=== PATIENT | male | born 1950 | race Caucasian/White ===

== ENCOUNTER → 2017-07-14 | Day surgery (SDC) | payer MEDICARE ==
[~2017-07-14] VITALS: Ht 188 cm; Wt 81.0 kg
[2017-07-14] VITALS (10 sets, daily range): BP systolic 123–151; BP diastolic 75–92; PULSE 68–91; RESP 14–17; O2SAT 93–99
[~2017-07-14] MED LIST: Bupivacaine-MPF 0.5% 30 mL Inj INFILTRATE ONE; CeFAZolin 2 Gm/50 mL D5W IV Premix IV ONE; Dexamethasone 4 mg/mL Inj ONE; EPHEDrine Sulfate 50 mg/mL Inj IVPUSH PRN; EPHEDrine/NS 5 mg/mL 5 mL Syringe ONE; Glycopyrrolate 0.2 MG/ML 1mL Inj ONE; HYDROmorphone 1 mg/mL Inj IVPUSH PRN; Lactated Ringer's 1,000 ML IV ONE; Lactated Ringer's 1,000 ML IV SCH; Lactated Ringer's 500 ML IV PRN; MetoCLOpramide 5 mg/mL 2 mL Inj IVPUSH PRN; OXYC1TAB24 PO; Ondansetron 2 mg/mL 2 mL Inj IVPUSH PRN; Ondansetron 2 mg/mL 2 mL Inj ONE; POLY17PO6 PO; Phenylephrine 10,000 mCg/mL Inj IVPUSH PRN; Propofol 10,000 mCg/mL 20 mL Inj ONE; fentaNYL-PF 50 mCg/mL 2 mL Inj IVPUSH PRN; fentaNYL-PF 50 mCg/mL 2 mL Inj ONE
--- NOTE | 2017-07-14 11:23 | PCM.HPANE ---
Patient Data Surgeon Admitting Provider: Attending Provider:Annette Morocho MD Primary Care Physician:Anjel Mar MD Other Provider:[place] Anesthesia Reason for Visit Recurrent Right Inguinal Hernia Ht/WT & BMI Height (Feet): 6 Height (Inches): 2.00 Weight (Kilograms): 81.000 Body Mass Index 22.00 Allergies Coded Allergies: No Known Allergies (Verified Allergy, Unknown, 07/06/17) Past Anesthesia History Anesthesia History: Denies:: Abnormal Airway, Anesthesia Reactions, Difficult Intubation, Malignant Hyperthermia Diabetes History Hx Diabetes?: No MRSA MRSA: No Medications Blood Thinner: Aspirin Home Meds Incl Beta Mars: No Active Scripts Polyethylene Glycol 3350 (Miralax)17 Gm Powd.pack17 Gm PO DAILY #1 BOTTLE Prov:Lisandra Swan MD 07/14/17 oxyCODONE-Acetaminophen 5-325 mg 1 Each Tablet1 Tab PO Q4H PRN For Pain #12 TABLET Prov:Lisandra Swan MD 07/14/17 History History of ENT Problems?: No HEENT History: Denies:: Abnormal Airway Cataracts Difficult Intubation Dysphagia Glaucoma Hearing Problem Sinus Problem TMJ Denture Type: None Teeth Condition: Within Normal Limits Hx of Heart Problems?: Yes Cardiovascular History: Positive for:: Chest Pain (remote hx of 2008) Valvular Heart Disease (echo 2008, hx mitral valve prolapse ) Denies:: Cardiac Surgery Congestive Heart Failure Edema Heart Murmur Hypertension Irregular Heartbeat Pacemaker Thrombophlebitis Other Cardiac History: Redd - sees for chronic ideopathic thrombocytopenia , last known platelet count 89 03/2017 Hx of Respiratory Problem?: No Respiratory History: Denies:: Asthma COPD Chest Surgery Cough Dyspnea Emphysema Hemoptysis Oxygen Administration Pneumonia Pulmonary Embolism Tuberculosis Use of C-PAP Machine Use of Inhalers / NEBS Hx Neurologic Problems?: No Neurological History: Denies:: Alzheimer's Disease CVA Dementia Dizziness Headaches Multiple Sclerosis Parkinson's Disease Peripheral Neuropathy Seizures TIA Hx of GI Problems?: Yes Other GI Pertinent History: recurrent right inguinal hernia current admission problem, hx of prior bilateral hernia repairs Hx of Problems?: Yes Genitourinary History: Positive for:: Kidney Stones (hx of 2015 with surgery) Denies:: HX of Hemodialysis Urinary Tract Infection (past hx of not current) HX of Peritoneal Dialysis: No Male Hx: Positive for:: Prostate Problems (bph) Denies:: Scrotal Mass Testicular Surgery (hx of vasectomy) Skin History: Denies:: History Skin Disorders? Pressure Ulcers Hx Musculoskeletal Problems?: No Musculoskeletal History: Denies:: Back Injury Fibromyalgia Joint Replacement Musculoskeletal Trauma Osteoarthritis Hx of Psycho/Social Problems?: No Psycho Social History: Denies:: Anxiety Hx Depression Hx Surgeries?: Yes (hx inguinal hernia repair, spermatocele, rt ureteral stent) Hx Any Other Health Problems?: Yes Other History: Positive for:: Hospitalization Denies:: Cancer Endocrine Disease Thyroid Disease History Blood Transfusions: Positive for:: Accept Blood Products? Denies:: Blood Transfusions Hx Diabetes: No Other History/Comment Idiopathic thrombocytopenia, chronic, stable, no changes in recent months, never warranted transfusion or treatment Hx Alcohol Use: NoHx Substance Use: No Smoking Status: Former Smoker Have You Smoked inLast 12 mo: No Stop/Bang S-Snoring: Do You Snore Loudly: No T-Tired: feel tired, fatigued: Yes O-Obsered: Observed not breath: No P-Blood Pressure: treated: No B- Body Mass Index > 35 kg/m2: No A- Age over 50: Yes N- Neck Large Circumference: No G- Gender Male: Yes SHARONDA Total Score: 3 SHARONDA Risk Assessment: High Risk, =/>3 Yes SHARONDA Category 4 OutPt Procedure: Yes Risk Assessment Category Category 1A: Patient has history of documented sleep apnea, and HAS NOT received any narcotic, sedative or anesthesia administration during this stay. Category 1B: Patient has history of documented sleep apnea, and HAS received any narcotic , sedative or anesthesia administration during this stay Category 2: Patient has SUSPECTED Obstructive Sleep Apnea, and HAS received any narcotic , sedative or anesthesia administration during this stay. Category 3: Patient has SUSPECTED Obstructive Sleep Apnea and HAS NOT received narcotic, sedative or anesthesia administration during this stay. Category 4: Outpatient in Procedural Areas with known sleep apnea or who screen positive for High Risk via the STOP/BANG questionnaire. Exam Exam Vital Signs Vital Signs Date Time Temp Pulse Resp B/P Pulse Ox O2 Delivery O2 Flow Rate FiO2 07/14/17 10:17 36.6 68 14 124/78 94 Room Air General Appearance: Alert, Oriented X3, Cooperative, No Acute Distress HEENT/AIRWAY: MP 2 Lungs: Clear to Auscultation, Normal Air Movement Heart: Exam Unremarkable, Regular Rate/Rhythm, No Murmurs/Rubs/Gallops Meds/Labs/Diagnostics Admission Meds Current Medications Lactated Ringer's (Lr) 1,000 ml @ ud STK-MED ONCE IV Last administered on t 10:18; Start 07/14/17 at 10:18; Stop 07/14/17 at 10:19; Status DC Plan Impression Patient chart reviewed, patient interviewed and anesthestic plan with risks, benefits, and alternatives discussed, and informed consent obtained. NPO per Anesth. Guidelines: Yes ASA Physical Status: ASA2 Mod Systemic Disease Anesthetic Plan: GA Bene/Risks/Altern/Consents: Yes HP Complete Prior to Induction: Yes Enrike Russell MD Jul 14, 2017 11:23
[2017-07-14 11:36] LABS: Mean Corpuscular Hemoglobin 32.5 pg (27.0-35.0); Mean Corpuscular Volume 93.1 fL (81-100)
--- NOTE | 2017-07-14 17:42 | OP ---
[address] [address] OPERATIVE REPORT PATIENT: KIANNA RANDLE : 1950 MR#: [id number] ADMIT: 07/14/2017 JOB ID: [id number] DATE OF SURGERY: 07/14/2017 PREOPERATIVE DIAGNOSIS(ES): Recurrent right inguinal hernia. POSTOPERATIVE DIAGNOSIS(ES): Recurrent right indirect inguinal hernia. PROCEDURE PERFORMED: Open repair of recurrent right inguinal hernia with mesh. SURGEON: Annette Morocho MD MASTER COASTWISE YACHT: Kevin Swan MD and Griselda Fraga DO INDICATIONS: The patient is a 66-year-old gentleman who had multiple inguinal hernia repairs sometime in the past. According to the operative report we could find in [facility] he had a left inguinal hernia repair with mesh, Kugel technique, by Dr. Lico Trinidad in 2001, left hydrocelectomy by Dr. Tee Ochoa on March 09, 2014, primary repair of incarcerated right inguinal hernia by Dr. Robles on June 27, 2014, and repair of recurrent right inguinal hernia with mesh in the preperitoneal space by Dr. Enrike Thapa on December 25, 2014. A right groin bulge came back a year or so ago and he came back to see me for repair. I got a CT which showed recurrent hernia. After discussing the risks, benefits, and alternatives, he was brought to the operating room for open repair with mesh given the mesh placement previously in the properitoneal space. PROCEDURE DETAILS: He was placed in a supine position. Underwent smooth induction of general anesthesia. The right groin was prepped and draped in the usual sterile fashion. Surgical time-out was undertaken using safety checklist, and all were in agreement. I began by making a skin incision along the upper of the old incisions and divided the skin and subcutaneous tissue sharply, getting down to the external oblique aponeurosis. The entire operative field had intense scarring, making the dissection of the planes extremely challenging. I had a tough time defining the external oblique and it from the contents of the inguinal canal but I was ultimately able to identify it and the cord structures and encircle them in a Sarabjit drain and separate them from the inguinal floor and the external oblique aponeurosis circumferentially. I eventually was able to identify an indirect hernia sac adherent to the cord structures laterally. I dissected it free all the way to the old deep ring and ligated it with 0 PDS and amputated it. After that, I repaired the inguinal floor with a 3 x 6 Marlex mesh placed anteriorly, anchoring to the pubic tubercle inferomedially, shelving edge of the inguinal ligament inferiorly, creating a new deep ring between the leaves of the mesh, and medially anchored to the rectus abdominis. After that, we closed the external oblique aponeurosis with a running 3-0 Vicryl. Raul's and skin was reapproximated with 4-0 Monocryl. Steri-Strips and sterile dressing were applied. The patient was recovered from anesthesia and was taken to the recovery room in stable condition. ADDENDUM FOR MODIFIER 22: Given the intense scarring from his prior operations, the anatomy and dissection were extremely challenging, more than doubling the operative time, prompting us to request a higher reimbursement. SILVIA
--- NOTE | 2017-07-14 18:10 | PCM.ANEP1 ---
Post Anesthesia PACU Phase 1 Assessment Date of Service: Jul 14, 2017 Vital Signs Vital Signs Date Time Temp Pulse Resp B/P Pulse Ox O2 Delivery O2 Flow Rate FiO2 07/14/17 17:10 36.7 88 16 151/92 95 Room Air 07/14/17 16:58 76 15 141/87 94 Room Air 07/14/17 16:43 88 15 143/79 94 Room Air 07/14/17 16:35 85 14 144/80 95 Room Air 07/14/17 16:25 81 17 144/75 93 Room Air 07/14/17 16:20 86 14 139/80 94 Room Air 07/14/17 16:15 91 15 123/80 97 Simple Mask 8 07/14/17 16:10 37.0 88 17 139/79 99 Simple Mask 8 07/14/17 10:17 36.6 68 14 124/78 94 Room Air Anesthetic Administered: GA Level of Alertness: Awake, talking ROWE's with Equal Strength: Yes Pain: No Nausea or Vomiting: No CV Function & Hydration Stable: Yes Airway Device: Oxygen Delivery: Room Air Lungs: Clear to Auscultation, Normal Air Movement PACU Phase 2 Assessment Complications: No Follow up Care: No Patient Instructions Provided: Yes Enrike Russell MD Jul 14, 2017 18:10
== END | disposition home or self-care (01) ==
LOC: SAS 09:40
PROVIDERS: ATTEND Student in an Organized Health Care Education/Training Program
PROC: 0YU60JZ Supplement Left Inguinal Region with Synthetic Substitute, Open Approach (ICD-10-PCS; principal; 2017-07-14 11:45)
DX: K40.91 Unilateral inguinal hernia, without obstruction or gangrene, recurrent (principal); D69.3 Immune thrombocytopenic purpura; N40.0 Benign prostatic hyperplasia without lower urinary tract symptoms
CPT/HCPCS: 36415; 49520; 85027; C1781; J0690; J1100; J2405; J2704; J3010; J7120